=== PATIENT | female | born 1955 | race Caucasian/White ===

== ENCOUNTER → 2016-09-21 | Outpatient (REF) | payer MEDICAID, OTHER ==
[2016-09-21 15:01] LABS: ALBUMIN 4.3 GM/DL (3.2-5.2); ALBUMIN/GLOBULIN RATIO 1.43 (1.00-1.93); BILIRUBIN,TOTAL 0.6 MG/DL (0.2-1.0); CREATININE FOR GFR 1.06 MG/DL (0.55-1.02); FREE T4 1.06 NG/DL (0.76-1.46); GLOMERULAR FILTRATION RATE 56.1 (>45); POTASSIUM SERUM 4.1 MEQ/L (3.5-5.1); TOTAL PROTEIN 7.3 GM/DL (6.4-8.2)
== END ==
LOC: M SFHCADAM 08:37
PROVIDERS: ATTEND Physician Assistant
DX: E03.9 Hypothyroidism, unspecified (principal); I11.9 Hypertensive heart disease without heart failure; M50.30 Other cervical disc degeneration, unspecified cervical region

== ENCOUNTER 2017-02-07 08:09 | Outpatient (CLI) | payer OTHER ==
[~2017-02-07] VITALS: Ht 172.7 cm; Wt 111.6 kg
[~2017-02-07 08:09] MED LIST: ASPI81TA85 PO; CARV25TA PO; CHLO125TA PO; CYCL5TAB PO; D3-5CAP PO; FISH100049 PO; LATA5OPD OD; LEVO50TA5 PO; LOSA50TA20 PO; METR0.7534 EX; NITR4TASL SL
[2017-02-07] MEDS ORDERED: NS 1,000 ML IV SCH (08:45)
[2017-02-07] MEDS ORDERED: PROPOFOL 200 MG/20 ML VIAL As Ordered ONE (09:59)
[2017-02-07] MEDS ORDERED: LIDOCAINE 2% INJ 100 MG/5 ML SDV (FOR ANES.) As Ordered ONE (09:59)
--- NOTE | 2017-02-07 10:05 | ROOR ---
Patient Name: Mildred Arndt Procedure Date: 02/07/2017 9:41 AM Date of : 1955 Age: 61 Room: [facility] Gender: Female Note Status: Finalized Procedure: Colonoscopy Indications: High risk colon cancer surveillance: Personal history of colonic polyps Providers: Aguilar LEDBETTER MD Referring MD: JUAN Perez Requesting Provider: Medicines: Monitored Anesthesia Care Complications: No immediate complications. Procedure: Pre-Anesthesia Assessment: - The heart rate, respiratory rate, oxygen saturations, blood pressure, adequacy of pulmonary ventilation, and response to care were monitored throughout the procedure. The Colonoscope was introduced through the anus and advanced to the cecum, identified by appendiceal orifice and ileocecal valve. The colonoscopy was performed without difficulty. The patient tolerated the procedure well. The quality of the bowel preparation was adequate and fair and good except the cecum was unsatisfactory. Findings: The perianal and digital rectal examinations were normal. A 5 mm polyp was found in the sigmoid colon. The polyp was sessile. The polyp was removed with a cold snare. Resection and retrieval were complete. A few medium-mouthed diverticula were found in the sigmoid colon. Internal hemorrhoids were found during retroflexion. The hemorrhoids were medium-sized. The exam was otherwise without abnormality on direct and retroflexion views. Impression: - Preparation of the colon was fair. - One 5 mm polyp in the sigmoid colon, removed with a cold snare. Resected and retrieved. - Diverticulosis in the sigmoid colon. - Internal hemorrhoids. - The examination was otherwise normal on direct and retroflexion views. Recommendation: - Repeat colonoscopy in 2 years because the bowel preparation was suboptimal. Aguilar Ledbetter MD Aguilar LEDBETTER MD 02/07/2017 10:05:17 AM This report has been signed electronically. Number of Addenda: 0 Note Initiated On: 02/07/2017 9:41 AM Estimated Blood Loss: Estimated blood loss: none.
[2017-02-07 10:25] VITALS: BP 145/95
== END 2017-02-07 11:05 | disposition home or self-care (01) ==
LOC: M OPP 08:09
PROVIDERS: ATTEND Internal Medicine Gastroenterology
DX: Z12.11 Encounter for screening for malignant neoplasm of colon (principal); D12.5 Benign neoplasm of sigmoid colon; K57.30 Diverticulosis of large intestine without perforation or abscess without bleeding; K64.8 Other hemorrhoids; Z86.010 Personal history of colon polyps; I25.10 Atherosclerotic heart disease of native coronary artery without angina pectoris; I10 Essential (primary) hypertension; E78.5 Hyperlipidemia, unspecified; E03.9 Hypothyroidism, unspecified; R51 Headache; Z95.5 Presence of coronary angioplasty implant and graft; E66.9 Obesity, unspecified; Z87.891 Personal history of nicotine dependence; Z88.8 Allergy status to other drugs, medicaments and biological substances; Z91.040 Latex allergy status; Z79.82 Long term (current) use of aspirin; Z79.899 Other long term (current) drug therapy; Z80.0 Family history of malignant neoplasm of digestive organs

== ENCOUNTER → 2017-03-15 | Outpatient (CLI) | payer OTHER ==
--- NOTE | 2017-03-15 10:48 | REP ---
Right knee five views: Comparison is 05/06/2010. There is joint space narrowing and osteophytic formation of the medial compartment at the patellofemoral compartment. This is similar to the comparison study. The lateral compartment is unremarkable. There is no joint effusion. Mineralization is normal. Impression: Medial compartment and patellofemoral compartment osteoarthritis. Lateral compartment is unremarkable. No change from the prior study. Signed by Sylvester Ferrari MD 03/15/2017 10:38 A
== END ==
LOC: M ADAMS 10:02
PROVIDERS: ATTEND Physician Assistant
DX: M25.561 Pain in right knee (principal)

== ENCOUNTER → 2017-04-08 | Outpatient (CLI) | payer OTHER ==
--- NOTE | 2017-04-08 13:47 | REP ---
Lumbar spine series: Five views. History: Degenerative disc disease. Low back pain. Findings: There is a mild levoconvex lumbar rotoscoliotic curve. Diffuse degenerative disc disease is seen. This is most pronounced at the L4-L5 and L2-3 where there is reactive sclerosis and osteophyte formation. There is some degenerative narrowing of the 3-4 disc as well. Pedicles and posterior elements are intact. There is no evidence of spondylolysis or spondylolisthesis. There is osteoarthritic facet hypertrophy and sclerosis bilaterally at L4-5 and L5-S1, left more so than right. Psoas margins are symmetric. Sacrum and SI joints are intact. Impression: Levoconvex lumbar scoliotic curve. Degenerative disc disease and osteoarthritic facet changes as noted above. No acute bony abnormality. Signed by Rolf Razo MD 04/08/2017 03:14 P
== END ==
LOC: M ADAMS 10:17
PROVIDERS: ATTEND Physician Assistant
DX: M51.36 Other intervertebral disc degeneration, lumbar region (principal); M41.86 Other forms of scoliosis, lumbar region

== ENCOUNTER → 2018-02-17 | Outpatient (REF) | payer OTHER ==
[2018-02-17 16:39] LABS: BASO % 0.6 % (0.0-1.0); EOS # 0.1 10^3/uL (0.0-0.50); EOS % 1.8 % (0.0-3.0); HEMOGLOBIN 15.9 g/dl (12.0-15.5); IMMATURE GRANULOCYTE % 0.2 % (0-3.0); LYMPH # 2.1 10^3/uL (1.5-4.5); LYMPH % 42.7 % (24.0-44.0); MEAN CORPUSCULAR HEMOGLOBIN 31.6 pg (27.0-33.0); MEAN CORPUSCULAR HGB CONC 36.1 g/dl (32.0-36.5); MEAN CORPUSCULAR VOLUME 87.5 fl (80.0-96.0); MONO # 0.5 10^3/uL (0.0-0.8); MONO % 9.2 % (0.0-5.0); NEUTROPHILS # 2.2 10^3/uL (1.8-7.7); NEUTROPHILS % 45.5 % (36.0-66.0); PLATELET COUNT, AUTOMATED 227 10^3/uL (150-450); RED BLOOD COUNT 5.03 10^6/uL (4.00-5.40); RED CELL DISTRIBUTION WIDTH 12.1 % (11.5-14.5); WHITE BLOOD COUNT 4.9 10^3/uL (4.0-10.0)
[2018-02-17 17:19] LABS: ALBUMIN 4.3 GM/DL (3.2-5.2); ALBUMIN/GLOBULIN RATIO 1.16 (1.00-1.93); ALKALINE PHOSPHATASE 98 U/L (45-117); ALT/SGPT 32 U/L (12-78); ANION GAP 9 MEQ/L (8-16); AST/SGOT 24 U/L (7-37); BILIRUBIN,TOTAL 0.9 MG/DL (0.2-1.0); BLOOD UREA NITROGEN 26 MG/DL (7-18); CARBON DIOXIDE LEVEL 28 MEQ/L (21-32); CHLORIDE LEVEL 103 MEQ/L (98-107); CHOLESTEROL LEVEL 236 MG/DL (<200); CHOLESTEROL RISK RATIO 5.488 (<5); CPK CREATINE PHOSPHOKINASE 128 U/L (26-192); CREATININE FOR GFR 1.34 MG/DL (0.55-1.30); GLOMERULAR FILTRATION RATE 42.5 (>45); GLUCOSE, FASTING 120 MG/DL (70-100); HDL CHOLESTEROL 43 MG/DL (>40); NON-HDL-C 193 MG/DL; POTASSIUM SERUM 3.8 MEQ/L (3.5-5.1); SODIUM LEVEL 140 MEQ/L (136-145); TRIGLYCERIDES LEVEL 230 MG/DL (<150)
== END ==
LOC: M LABDRWAD 16:06
DX: R07.9 Chest pain, unspecified (principal); R00.2 Palpitations; E66.1 Drug-induced obesity; I10 Essential (primary) hypertension

== ENCOUNTER 2018-07-03 16:02 | Observation (INO) | payer OTHER ==
[~2018-07-03] VITALS: Ht 167.6 cm; Wt 100.0 kg
[~2018-07-03 16:02] MED LIST changes: -LOSA50TA20 PO; +LOSA50TA88 PO; -METR0.7534 EX; +METR0.7534 EXT
[2018-07-03] MEDS ORDERED: NS 2,000 ML IV ONE (16:45)
[2018-07-03 16:57] LABS: BASO % 0.3 % (0.0-1.0); EOS % 0.2 % (0.0-3.0); HEMATOCRIT 37.9 % (36.0-47.0); HEMOGLOBIN 13.7 g/dl (12.0-15.5); LYMPH # 1.6 10^3/uL (1.5-4.5); LYMPH % 17.5 % (24.0-44.0); MEAN CORPUSCULAR HGB CONC 36.1 g/dl (32.0-36.5); MEAN CORPUSCULAR VOLUME 88.6 fl (80.0-96.0); MONO % 10.9 % (0.0-5.0); NEUTROPHILS # 6.3 10^3/uL (1.8-7.7); NEUTROPHILS % 70.8 % (36.0-66.0); PLATELET COUNT, AUTOMATED 149 10^3/uL (150-450); RED BLOOD COUNT 4.28 10^6/uL (4.00-5.40); WHITE BLOOD COUNT 8.9 10^3/uL (4.0-10.0)
--- NOTE | 2018-07-03 17:03 | REP ---
Chest one-view HISTORY: Syncope Comparison: 03/24/2016 The lungs are clear. The heart is normal in size. The pulmonary vasculature is normal in appearance. Impression: No acute disease. Electronically Signed by Eleazar Osorio MD 07/03/2018 04:55 P
[2018-07-03 17:20] LABS: ALBUMIN 3.6 GM/DL (3.2-5.2); ALT/SGPT 19 U/L (12-78); BILIRUBIN,DIRECT 0.3 MG/DL (0.0-0.2); BILIRUBIN,TOTAL 1.1 MG/DL (0.2-1.0); BLOOD UREA NITROGEN 23 MG/DL (7-18); CALCIUM LEVEL 9.1 MG/DL (8.8-10.2); CARBON DIOXIDE LEVEL 26 MEQ/L (21-32); CHLORIDE LEVEL 99 MEQ/L (98-107); CK-MB VALUE MASS < 1.0 NG/ML (<3.6); CPK CREATINE PHOSPHOKINASE 87 U/L (26-192); ETHYL ALCOHOL (ETHANOL) < 0.003 % (0.000-0.010); GLOMERULAR FILTRATION RATE 40.4 (>45); GLUCOSE, FASTING 108 MG/DL (70-100); MB/CK RELATIVE INDEX 1.15 (< OR =4); POTASSIUM SERUM 3.1 MEQ/L (3.5-5.1); SODIUM LEVEL 137 MEQ/L (136-145); THYROID STIMULATING HORMONE 0.869 uIU/ML (0.358-3.740); TROPONIN I < 0.02 NG/ML (< 0.10)
[2018-07-03 17:40] LABS: INFLUENZA A AMPLIFICATION NEGATIVE (NEGATIVE); INFLUENZA B AMPLIFICATION NEGATIVE (NEGATIVE)
--- NOTE | 2018-07-03 18:19 | REP ---
CT brain without contrast: History: Syncope. No comparison CT study. Findings: Preliminary digital furnace setter radiograph is unremarkable. Bone window settings demonstrate an intact bony calvarium. Visualized paranasal sinuses are clear. No intraorbital abnormality is seen. On soft tissue window settings, there is minimal diffuse cerebral atrophy. There is no evidence of intracranial hemorrhage. No infarct, mass, extra-axial fluid collection, or midline shift is seen. Impression: Minimal diffuse cerebral atrophy. Otherwise negative CT study of the brain. Electronically Signed by Rolf Razo MD 07/03/2018 07:47 P
[2018-07-03 18:50] LABS: AMPHETAMINES LEVEL URINE NEGATIVE (NEGATIVE); BARBITURATES URINE NEGATIVE (NEGATIVE); BENZODIAZEPINES URINE NEGATIVE (NEGATIVE); CANNABINOIDS URINE NEGATIVE (NEGATIVE); COCAINE METABOLITE URINE NEGATIVE (NEGATIVE); METHADONE URINE NEGATIVE (NEGATIVE); OPIATES URINE NEGATIVE (NEGATIVE); PHENCYCLIDINE URINE NEGATIVE (NEGATIVE)
[2018-07-03] MEDS ORDERED: POTASSIUM CHLORIDE 10 MEQ SR TABLET PO ONE (19:45)
[2018-07-03] MEDS ORDERED: cefTRIAXone SOD 1 GM in D5W MINI-BAG PLUS 50 ML IV ONE (19:45)
[2018-07-03] MEDS ORDERED: NS 500 ML IV ONE (19:45)
[2018-07-03] MEDS ORDERED: CEFD300CAP PO (19:49)
[2018-07-03] MEDS ORDERED: XALA0.007 OU (22:33)
[2018-07-03] MEDS ORDERED: CLOTCRE3 TOP (22:33)
[2018-07-03] MEDS ORDERED: VITA50005 PO (22:33)
[2018-07-03] MEDS ORDERED: ASPI81TAEC PO (22:33)
[2018-07-03] MEDS ORDERED: TYLE500T78 PO (22:33)
[2018-07-03] MEDS ORDERED: CHLO25TA PO (22:33)
[2018-07-03] MEDS ORDERED: CARV25TA PO (22:33)
[2018-07-03] MEDS ORDERED: SYNT50TA PO (22:33)
[2018-07-03] MEDS ORDERED: ZETI10TA30 PO (22:33)
[2018-07-03] MEDS ORDERED: DULO1CAP PO (22:33)
[2018-07-03] MEDS ORDERED: CYCL5TAB PO (22:33)
[2018-07-03] MEDS ORDERED: FISH1000 PO (22:33)
--- NOTE | 2018-07-04 00:54 | HPEPDOC ---
General Date of Admission June 27, 2018 Primary Care Physician: CÉSAR BARNES PA-C Attending Physician: Cy Last M.D. Chief Complaint The patient is a 62-year-old female admitted with a reason for visit of N/V. History of Present Illness 61-year-old female with multiple comorbidities who was brought in by EMS after she fainted at home which was witnessed by her grandson. For the last 3 days she's been experiencing lightheadedness and dizziness which she attributes for her recent travel to [place]. She went home for the holidays and had interaction with little kids the past 1 month. She states that she had some sick contact at that time as well. She's noticed that she's been home though she's had a decreased appetite and just like generalized malaise. Was to having possible subjective fevers but did not take her temperature. She states that she is compliant with all her medications as well. She admits to checking her blood pressure as needed in the last time she checked in April and was 130s over 80s. Denies having any vomiting constipation diarrhea dysuria or increased urinary frequency. . She admits to having some nausea this morning when she woke up. This morning when she was in her kitchen experienced dizziness and syncopized. Her grandson witnessed the syncopal episode and caught her before she fell to the ground. He denies her having any head injury. When evaluated by EMS her blood sugar was 86 she was satting 95% on room air and she was given 4 mg of Zofran prior to ring brought to the [facility] ER for further evaluation. In the ER, her blood pressure was 96/58 with a pulse of 67 regular. She was given 2 L of normal saline bolus. Head CT was negative for any acute processes. Electrolytes showed hypokalemia and hospitalist team was then called for admission for syncopal episode. Home Medications Scheduled Aspirin (Aspirin EC) 81 Mg Tabec, 81 MG PO DAILY, (Reported) Carvedilol (Carvedilol) 25 Mg Tab, 25 MG PO BID, (Reported) Cefdinir (Cefdinir) 300 Mg Cap, 1 CAP PO BID Chlorthalidone (Chlorthalidone) 25 Mg Tab, 25 MG PO DAILY, (Reported) Duloxetine Hcl (Duloxetine HCl) 20 Mg Cap, 20 MG PO BID, (Reported) Ergocalciferol (Vitamin D) 50,000 Unit Cap, 50,000 UNIT PO 1XWK, (Reported) FRIDAYS Ezetimibe (Zetia) 10 Mg Tab, 10 MG PO DAILY, (Reported) Fish Oil (Fish Oil) 1,000 Mg Cap, 1,000 MG PO BID, (Reported) Latanoprost (Xalatan) 0.005 % Lea, 1 DROP OU QHS, (Reported) Levothyroxine Sodium (Synthroid) 50 Mcg Tab, 50 MCG PO DAILY, (Reported) Losartan Potassium (Losartan Potassium) 50 Mg Tab, 50 MG PO DAILY, (Reported) Metronidazole (Metronidazole) 1 % Gel, 1 DOSE EXT DAILY, (Reported) USES ON FACE FOR ROSACEA AFTER SHOWER Scheduled PRN Acetaminophen (Tylenol Extra Strength) 500 Mg Tab, 1,000 MG PO Q6H PRN for PAIN, (Reported) Clotrimazole (Clotrimazole Anti-Fungal) 1 % Cre, 1 DOSE TOP BID PRN for RASH, (Reported) USES UNDER STOMACH FOLD NEEDED FOR RASH Cyclobenzaprine HCl (Cyclobenzaprine HCl) 5 Mg Tab, 5 MG PO TID PRN for HEADACHE, (Reported) Allergies Coded Allergies: Latex (Unverified Allergy, Unknown, rash, 02/02/17) Atorvastatin (Unverified Adverse Reaction, Mild, muscle cramps, 02/02/17) Dobutamine (Verified Adverse Reaction, Mild, drops heartrate into the 40's, 02/02/17) Lisinopril (Verified Adverse Reaction, Mild, cough, 02/02/17) Past Medical History Medical History 1. Coronary artery disease status post LAD stent on 2. Hypertensive heart disease 3. Obesity 4. Depression 5. Osteophyte arthritis 6. History of Gallstones 7. History of migraines 8. History of glaucoma 9. 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 Hysterectomy 1999 2. LAD stent placement in 2009 3. Tubal ligation 4. Tonsillectomy 5. Fracture repair 6. Colposcopy 2013 7. Colonoscopy with polypectomy Family History Father at 44 years old little known history heart disease and hypertension Mother at 82 years old history of colon cancer Social History * Smoker: former Smoker, quit greater than 1 year (quit greater than 10 years ago) Alcohol: occationally Drugs: denies She is a low-fat low-cholesterol diet. She is currently unemployed Denies regular exercise She is & mother of 3 Review of Systems Constitutional: Reports: Fever (objective fevers), Malaise, Weakness; Denies: Chills, Night Sweats Eyes: Denies: Pain, Vision change ENT: Reports: Head Aches (has a history of migraines took her when necessary cyclobenzaprine on Tuesday); Denies: Ear Pain, Dysphagia, Sinus Congestion, Post Nasal Drip, Sore Throat Skin: Denies: Rash, Lesions, Jaundice, Breakdown Pulmonary: Denies: Dyspnea, Cough Cardiovascular: Reports: Lt Headedness (plus dizziness); Denies: Chest Pain, Palpitations, Orthopnea, Paroxysmal Noc. Dyspnea Gastrointestinal: Reports: Nausea; Denies: Vomiting, Abdominal Pain, Diarrhea, Melena, Hematochezia Genitourinary: Denies: Dysuria, Frequency, Incontinence, Hematuria Hematologic: Denies: Bruising, Bleeding Excessively Musculoskeletal: Denies: Neck Pain, Back Pain, Joint Pain, Muscle Pain, Spasms Neurological: Denies: Weakness, Numbness, Change in speech, Confusion, Seizures Psych: Reports: Mood Normal, Depression (history of depression on duloxetine); Denies: Memory Issues Physical Examination General Exam: Positive: Alert, No Acute Distress Eye Exam: Positive: PERRLA, Conjunctiva & lids normal, EOMI; Negative: Sclera icteric ENT Exam: Positive: Atraumatic, Mucous membr. moist/pink, Pharynx Normal, Tongue Midline Neck Exam: Positive: Supple; Negative: JVD, thyromegaly Chest Exam: Positive: Clear to auscultation, Normal air movement Heart Exam: Positive: Rate Normal, Regular Rhythm, Normal S1, Normal S2; Negative: Murmurs, Rubs Telemetry: Positive: No significant arrhythmia Abdomen Exam: Positive: BS Hypoactive, Soft; Negative: Tenderness Extremity Exam: Positive: Normal pulses; Negative: Clubbing, Cyanosis, Edema Skin Exam: Positive: Nl turgor and temperature (no tenting can be appreciated); Negative: Breakdown, Lesion Neuro Exam: Positive: Normal Gait, Normal Speech Psych Exam: Positive: Mental status NL, Mood NL, Oriented x 3 Other physical findings Stool occult: negative Vital Signs Vital Signs Date Time Temp Pulse Resp B/P (MAP) Pulse Ox O2 Delivery O2 Flow Rate FiO2 07/03/18 23:15 60 94/58 (70) 94 07/03/18 18:45 18 Room Air 07/03/18 16:58 2.0 07/03/18 16:14 98.8 Laboratory Data Labs 24H Laboratory Tests 2 07/03/18 16:32: Immature Granulocyte % (Auto) 0.3, White Blood Count 8.9, Red Blood Count 4.28, Hemoglobin 13.7, Hematocrit 37.9, Mean Corpuscular Volume 88.6, Mean Corpuscular Hemoglobin 32.0, Mean Corpuscular Hemoglobin Concent 36.1, Red Cell Distribution Width 11.7, Platelet Count 149L, Neutrophils (%) (Auto) 70.8H, Lymphocytes (%) (Auto) 17.5L, Monocytes (%) (Auto) 10.9H, Eosinophils (%) (Auto) 0.2, Basophils (%) (Auto) 0.3, Neutrophils # (Auto) 6.3, Lymphocytes # (Auto) 1.6, Monocytes # (Auto) 1.0H, Eosinophils # (Auto) 0.0, Basophils # (Auto) 0.0, Nucleated Red Blood Cells % (auto) 0.0, Anion Gap 12, Glomerular Filtration Rate 40.4L, Lactic Acid Level 1.0, Calcium Level 9.1, Aspartate Amino Transf (AST/SGOT) 16, Alanine Aminotransferase (ALT/SGPT) 19, Alkaline Phosphatase 100, Total Bilirubin 1.1H, Direct Bilirubin 0.3H, Total Creatine Kinase 87, Creatine Kinase MB < 1.0, Creatine Kinase MB Relative Index 1.15, Troponin I < 0.02, Total Protein 7.0, Albumin 3.6, Albumin/Globulin Ratio 1.06, Thyroid Stimulating Hormone (TSH) 0.869, Ethyl Alcohol Level < 0.003 07/03/18 16:52: Bedside Glucose (Misc Panel) 121H 07/03/18 16:55: Influenza Type A (RT-PCR) NEGATIVE, Influenza Type B (RT-PCR) NEGATIVE 07/03/18 18:16: Urine Color SERENA, Urine Appearance CLOUDYH, Urine pH 6.0, Urine Specific [place] 1.013, Urine Protein 1+H, Urine Glucose (UA) NEGATIVE, Urine Ketones NEGATIVE, Urine Blood 2+H, Urine Nitrite NEGATIVE, Urine Bilirubin NEGATIVE, Urine Urobilinogen 0.2, Urine Leukocyte Esterase 2+H, Urine WBC (Auto) TNTCH, Urine RBC (Auto) 87H, Urine Hyaline Casts (Auto) 15, Urine Bacteria (Auto) 2+H, Urine Squamous Epithelial Cells 5, Urine Amorphous Sediment MODERATEH, Urine Mucus (Auto) SMALL, Urine Sperm (Auto) , Urine Amphetamines Screen NEGATIVE, Urine Benzodiazepines Screen NEGATIVE, Urine Opiates Screen NEGATIVE, Urine Methadone Screen NEGATIVE, Urine Barbiturates Screen NEGATIVE, Urine Phencyclidine Screen NEGATIVE, Urine Cocaine Metabolite Screen NEGATIVE, Urine Cannabinoids Screen NEGATIVE CBC/BMP Laboratory Tests 07/03/18 16:32 Red Blood Count 4.28, Mean Corpuscular Volume 88.6, Mean Corpuscular Hemoglobin 32.0, Mean Corpuscular Hemoglobin Concent 36.1, Red Cell Distribution Width 11.7, Neutrophils (%) (Auto) 70.8 H, Lymphocytes (%) (Auto) 17.5 L, Monocytes (%) (Auto) 10.9 H, Eosinophils (%) (Auto) 0.2, Basophils (%) (Auto) 0.3, Neutrophils # (Auto) 6.3, Lymphocytes # (Auto) 1.6, Monocytes # (Auto) 1.0 H, Eosinophils # (Auto) 0.0, Basophils # (Auto) 0.0 Microbiology Microbiology 07/03/18 Blood Culture, Received Pending 07/03/18 Blood Culture, Received Pending 07/03/18 Urine Culture, Received Pending Assessment/Plan 1. Syncope likely secondary to decreased by mouth intake. In the ER she was given 2 L of IV bolus she states that her headache and lightheadedness have improved. Blood pressure still continues to the systolic 90s the highs of 110s. Continue with IV fluids running at 100 miles per hour and encourage good by mouth intake. We'll hold her carvedilol chlorthalidone, losartan and cycloben zaprine until resolution of syncope. Possible cause can be a viral as well as hypertensive medication, will obtain respiratory viral panel. We will also place her on telemetry to assess for any abnormal arrhythmia as well. Stool occult done at bedside was negative for blood. H&H is stable.Unlikely is secondary to anemia 2. Abnormal UA. Positive for WBC RBC 2+ leukocyte esterase. No leukocytosis and lactic acid is within normal limits. Given 1 dose of ceftriaxone in the ER reflex urine culture pending. History negative for UTI like symptoms -further antibiotics not needed. 3. History of hypertension. We'll hold all hypertensive medications for now. 1 and blood pressure is normalized can consider reducing chlorthalidone or losartan dose if needed 4. Hypokalemia. She was given 40 mEq potassium in the ER. Likely secondary to her diuretics (chlorthalidone) that she takes for blood pressure control, will supplement as needed. 5. Chronic kidney disease stage III baseline GFR 40s. She still has good urine output currently stable 6. History of LAD stent - hold carvedilol can resume once syncope is resolved 7. History of migraines we'll hold cyclobenzaprine prn for now. Refer to problem 1 8.History of depression- c/w duloxetine 20 mg by mouth daily 9. Hypothyroidism. c/w Synthroid 50 g by mouth daily 10. History of hyperlipidemia Zetia 10 mg by mouth daily 11. Diet low cholesterol diet 12. DVT prophylaxis heparin 5000 units daily 8 hours Disposition the patient will be admitted to family medicine service under Dr. Last 07/04/2018 at 7 AM. Plan / VTE VTE Prophylaxis Ordered?: Yes (heparin) GME ATTESTATION GME ATTESTATION My faculty preceptor for this patient encounter was physically present during the encounter and was fully available. All aspects of the patient interview, examination, medical decision making process, and medical care plan development were reviewed and approved by the faculty preceptor. The faculty preceptor is aware and concurs with the plan as stated in the body of this note and will attest to such by his/her cosignature. WANDER SOL DO Jul 04, 2018 00:54
[2018-07-04] MEDS ORDERED: LOSA50TA88 PO (02:12)
[2018-07-04] MEDS ORDERED: CLOTRIMAZOLE 1% TOPICAL CREAM 30GM TOP PRN (02:15)
[2018-07-04] MEDS ORDERED: ONDANSETRON 4MG/2ML VIAL (J2405) IV PRN (02:15)
[2018-07-04] MEDS ORDERED: ACETAMINOPHEN TAB 650MG DOSE (2X325MG) PO PRN (02:15)
[2018-07-04] MEDS: NS 1,000 ML IV SCH ×2 (02:58→12:06)
[2018-07-04] MEDS ORDERED: METAL LOCK LOOP XX ONE (04:41)
[2018-07-04] MEDS: LEVOTHYROXINE 50MCG TABLET (0.05MG) PO SCH (06:41)
[2018-07-04] MEDS: HEPARIN SOD (PORCINE) 5000 UNITS/ML VIAL SC SCH ×3 (06:41→22:06)
--- NOTE | 2018-07-04 09:58 | IPNPDOC ---
Subjective Date Seen The patient was seen on 07/04/18. Subjective Chief Complaint/HPI Pt this morning is feeling well, much better than she was. She has been up and out of bed without difficulty. She ate all of her breakfast. General: Reports: Fatigue Constitutional: Denies: Chills, Fever ENT: Denies: Head Aches Pulmonary: Denies: Dyspnea, Cough Cardiovascular: Denies: Chest Pain, Palpitations Gastrointestinal: Denies: Nausea, Vomiting, Abdominal Pain, Diarrhea Neurological: Denies: Weakness Psych: Reports: Mood Normal; Denies: Depression Objective Physical Examination General Exam: Positive: Alert, No Acute Distress ENT Exam: Positive: Mucous membr. moist/pink Neck Exam: Positive: Supple; Negative: JVD, thyromegaly Chest Exam: Positive: Clear to auscultation, Normal air movement Heart Exam: Positive: Rate Normal, Regular Rhythm, Normal S1, Normal S2; Negative: Murmurs, Rubs Telemetry: Positive: No significant arrhythmia Abdomen Exam: Positive: Normal bowel sounds, Soft; Negative: Tenderness Extremity Exam: Positive: Normal pulses; Negative: Clubbing, Cyanosis, Edema Skin Exam: Positive: Nl turgor and temperature (no tenting can be appreciated); Negative: Breakdown, Lesion Neuro Exam: Positive: Normal Speech Psych Exam: Positive: Mental status NL, Mood NL, Oriented x 3 Assessment /Plan Problems (1) Syncope Status: Acute Response to Treatment: Stable, Improving Problem Specific Plan: Monitor Clinically, Repeat Labs Problem Text: favor 2 OH 2 medication/dehydration No prior h/o 07/04 unremarkable tele since admit +orthostatics on admission (07/03 SBP sup 96/sit 80) 07/03 CT brain NAD 07/03 CXR NAD 07/03 BCX2 NG 07/03 UCX P (2) Orthostatic hypotension Status: Acute Response to Treatment: Improving Problem Specific Plan: Monitor Clinically, Repeat Labs Problem Text: as per syncope (3) Hypokalemia Status: Acute Response to Treatment: Stable Problem Specific Plan: Monitor Clinically, Repeat Labs Problem Text: repeat BMP ordered for AM. (4) CKD (chronic kidney disease), stage III Status: Chronic Response to Treatment: Stable Problem Specific Plan: Monitor Clinically, Repeat Labs Problem Text: 07/04 1.4-favor 2 mild dehydration baseline ~1.1 (5) Hypertension Status: Chronic Problem Text: stable off HD CTD 25, carve 25 BID, los 50 QD (6) Physical deconditioning Status: Chronic Problem Text: 07/04 PT P lives in [place] Plan/VTE VTE Prophylaxis Ordered?: Yes (heparin) VS, I&O, 24H, Fishbone Vital Signs/I&O Vital Signs Date Time Temp Pulse Resp B/P (MAP) Pulse Ox O2 Delivery O2 Flow Rate FiO2 07/04/18 07:30 66 129/72 (91) 93 07/04/18 06:30 16 07/03/18 18:45 Room Air 07/03/18 16:58 2.0 07/03/18 16:14 98.8 I&O- Last 24 Hours up to 6 AM 07/04/18 06:00 Intake Total 1000 ml Balance 1000 ml Laboratory Data 24H LABS Laboratory Tests 2 07/03/18 16:32: Immature Granulocyte % (Auto) 0.3, White Blood Count 8.9, Red Blood Count 4.28, Hemoglobin 13.7, Hematocrit 37.9, Mean Corpuscular Volume 88.6, Mean Corpuscular Hemoglobin 32.0, Mean Corpuscular Hemoglobin Concent 36.1, Red Cell Distribution Width 11.7, Platelet Count 149L, Neutrophils (%) (Auto) 70.8H, Lymphocytes (%) (Auto) 17.5L, Monocytes (%) (Auto) 10.9H, Eosinophils (%) (Auto) 0.2, Basophils (%) (Auto) 0.3, Neutrophils # (Auto) 6.3, Lymphocytes # (Auto) 1.6, Monocytes # (Auto) 1.0H, Eosinophils # (Auto) 0.0, Basophils # (Auto) 0.0, Nucleated Red Blood Cells % (auto) 0.0, Anion Gap 12, Glomerular Filtration Rate 40.4L, Lactic Acid Level 1.0, Calcium Level 9.1, Aspartate Amino Transf (AST/SGOT) 16, Alanine Aminotransferase (ALT/SGPT) 19, Alkaline Phosphatase 100, Total Bilirubin 1.1H, Direct Bilirubin 0.3H, Total Creatine Kinase 87, Creatine Kinase MB < 1.0, Creatine Kinase MB Relative Index 1.15, Troponin I < 0.02, Total Protein 7.0, Albumin 3.6, Albumin/Globulin Ratio 1.06, Thyroid Stimulating Hormone (TSH) 0.869, Ethyl Alcohol Level < 0.003 07/03/18 16:52: Bedside Glucose (Misc Panel) 121H 07/03/18 16:55: Influenza Type A (RT-PCR) NEGATIVE, Influenza Type B (RT-PCR) NEGATIVE 07/03/18 18:16: Urine Color SERENA, Urine Appearance CLOUDYH, Urine pH 6.0, Urine Specific [place] 1.013, Urine Protein 1+H, Urine Glucose (UA) NEGATIVE, Urine Ketones NEGATIVE, Urine Blood 2+H, Urine Nitrite NEGATIVE, Urine Bilirubin NEGATIVE, Urine Urobilinogen 0.2, Urine Leukocyte Esterase 2+H, Urine WBC (Auto) TNTCH, Urine RBC (Auto) 87H, Urine Hyaline Casts (Auto) 15, Urine Bacteria (Auto) 2+H, Urine Squamous Epithelial Cells 5, Urine Amorphous Sediment MODERATEH, Urine Mucus (Auto) SMALL, Urine Sperm (Auto) , Urine Amphetamines Screen NEGATIVE, Urine Benzodiazepines Screen NEGATIVE, Urine Opiates Screen NEGATIVE, Urine Methadone Screen NEGATIVE, Urine Barbiturates Screen NEGATIVE, Urine Ph encyclidine Screen NEGATIVE, Urine Cocaine Metabolite Screen NEGATIVE, Urine Cannabinoids Screen NEGATIVE CBC/BMP Laboratory Tests 07/03/18 16:32 Red Blood Count 4.28, Mean Corpuscular Volume 88.6, Mean Corpuscular Hemoglobin 32.0, Mean Corpuscular Hemoglobin Concent 36.1, Red Cell Distribution Width 11.7, Neutrophils (%) (Auto) 70.8 H, Lymphocytes (%) (Auto) 17.5 L, Monocytes (%) (Auto) 10.9 H, Eosinophils (%) (Auto) 0.2, Basophils (%) (Auto) 0.3, Neutrophils # (Auto) 6.3, Lymphocytes # (Auto) 1.6, Monocytes # (Auto) 1.0 H, Eosinophils # (Auto) 0.0, Basophils # (Auto) 0.0 Microbiology Microbiology 07/03/18 Blood Culture, Received Pending 07/03/18 Blood Culture, Received Pending 07/03/18 Urine Culture, Received Pending JAMAR DUMONT PA-C Jul 04, 2018 09:58 Cy Last M.D. Jul 04, 2018 17:13
[2018-07-04] MEDS: EZETIMIBE 10 MG TAB (ZETIA) PO SCH (10:08)
[2018-07-04] MEDS: DULoxetine 20 MG CAP (CYMBALTA) PO SCH ×2 (10:08→22:06)
[2018-07-04 13:00] VITALS: BP 113/67
--- NOTE | 2018-07-04 18:24 | ECGEPIP ---
Stationary ECG Study [facility] - ED Test Date: 2018-07-03 Pat Name: SUSAN HARMON Department: Room: - Gender: F Radio Dispatcher: ARJUN : 1955 Requested By: KIM Baron Order Number: [id number] Reading MD: Jonel Figueroa Measurements Intervals [place] Rate: 65 P: 43 NM: 159 QRS: 27 QRSD: 104 T: 40 QT: 401 QTc: 418 Interpretive Statements SINUS RHYTHM MODERATE INTRAVENTRICULAR CONDUCTION DELAY NO PRIORS FOR COMPARISON Electronically Signed On 07-04-2018 18:23:37 EST by Jonel Figueroa
[2018-07-04] MEDS ORDERED: LATANOPROST 0.005% OPHTH SOLN 2.5 ML OU SCH (21:00)
[2018-07-04 22:00] VITALS: BP 128/82
[2018-07-05] MEDS: LEVOTHYROXINE 50MCG TABLET (0.05MG) PO SCH (05:32)
[2018-07-05] MEDS: HEPARIN SOD (PORCINE) 5000 UNITS/ML VIAL SC SCH (05:32)
[2018-07-05 06:00] VITALS: BP_SYST 125; BP_SYST 133; BP_DIAS 74; BP_DIAS 75; BP_DIAS 80
[2018-07-05 06:29] LABS: HEMATOCRIT 34.2 % (36.0-47.0); HEMOGLOBIN 12.1 g/dl (12.0-15.5); MEAN CORPUSCULAR HGB CONC 35.4 g/dl (32.0-36.5); MEAN CORPUSCULAR VOLUME 90.5 fl (80.0-96.0); PLATELET COUNT, AUTOMATED 125 10^3/uL (150-450); RED BLOOD COUNT 3.78 10^6/uL (4.00-5.40); WHITE BLOOD COUNT 4.4 10^3/uL (4.0-10.0)
[2018-07-05 06:49] LABS: CALCIUM LEVEL 9.6 MG/DL (8.8-10.2); GLOMERULAR FILTRATION RATE 59.6 (>45); MAGNESIUM LEVEL 1.9 MG/DL (1.8-2.4); POTASSIUM SERUM 4.1 MEQ/L (3.5-5.1)
[2018-07-05] MEDS: EZETIMIBE 10 MG TAB (ZETIA) PO SCH (08:55)
[2018-07-05] MEDS: DULoxetine 20 MG CAP (CYMBALTA) PO SCH (08:55)
[2018-07-05] MEDS ORDERED: CEPHALEXIN 500 MG CAP PO SCH (09:00)
[2018-07-05] MEDS ORDERED: CARVedilol 12.5 MG TAB PO SCH (09:00)
[2018-07-05] MEDS ORDERED: CEPH500C PO (10:25)
[2018-07-05] MEDS ORDERED: CARV12.5 PO (10:25)
--- NOTE | 2018-07-05 10:44 | DS.PDOC ---
Discharge Summary General Date of Admission Jul 04, 2018 at 01:07 Date of Discharge Jul 05, 2018 Primary Care Physician: CÉSAR AGUIRRE PA-C Attending Physician: Ridge Aguirre MD Discharge Summary PROCEDURES PERFORMED DURING STAY: None ADMITTING DIAGNOSES: 1. Syncope 2. Dehydration 3. Hypotension 4. MARGARETH on CKD secondary to dehydration 5. Hypokalemia 4. UTI COMPLICATIONS/CHIEF COMPLAINT: Orthostatic Hypotension,Syncope. HISTORY OF PRESENT ILLNESS: 61-year-old female patient of Kolton Aguirre PA-C was brought to [facility] ER by EMS after she fainted at home which was witnessed by her grandson. For the last 3 days she had been experiencing lightheadedness and dizziness which she attributed to her recent travel to [place]. She went home for the holidays and had interaction with little kids for the past month. She had some sick contacts around that time as well. She's had a decreased appetite with poor fluid intake and generalized malaise. She also reported subjective fevers but did not take her temperature. Denied having any vomiting constipation diarrhea dysuria or increased urinary frequency. She admited to having some nausea on morning of admission. The morning of admission, when she was in her kitchen she experienced dizziness and syncope. Her grandson witnessed the syncopal episode and caught her before she fell to the ground. He denied any head injury. When evaluated by EMS her blood sugar was 86 she was satting 95% on room air and she was given 4 mg of Zofran prior to ring brought to the [facility] ER for further evaluation. In the ER, her blood pressure was 96/58 with a pulse of 67 regular. She was given 2 L of normal saline bolus. Head CT was negative for any acute processes. Electrolytes showed hypokalemia and hospitalist team was then called for admission for syncopal episode. HOSPITAL COURSE: 1. Syncope: likely secondary to dehydration. She was given 2 L of IV bolus in ER with IV fluids. She had good oral intake and she reported symptoms improvement within a relatively short poroid of time. Antihypertensives wer held: carvedilol, chlorthalidone, and losartan. Cyclobenzaprine was also held. On day of discharge patient was feeling back to her baseline with no further episodes of syncope. B/P was stable, improved from initial presentation. Her Cardvidolol was resumed at half dose 12.5 mg po bid. All other antihypertensives were held until her f/u appt with PCP. BC negative after 24 hours, respiratory panel negative 2. Dehydration: As above 3. Hypotension: As above 4. MARGARETH on CKD secondary to dehydration: Renal function improved to baseline with BUN/Cre 18/1.00, GFR 59 on day of discharge. 5. Hypokalemia: Patient was given 40 mEq potassium in the ER. K+ 4.1 on day of discharge. Chlorthalidone was held as stated above. 4. UTI: Urine culture with E-coli >100,000 colony count. She was started on Keflex 500mg i po bid for 7 days. She will f/u with PCP DISCHARGE MEDICATIONS: Please see below. ALLERGIES: Please see below. PHYSICAL EXAMINATION ON DISCHARGE: VITAL SIGNS: Please see below. GENERAL: AOx3, NAD HEENT: unremarkable NECK: supple, no lymphadenopathy CARDIOVASCULAR EXAMINATION:RRR RESPIRATORY EXAMINATION: CTA ABDOMINAL EXAMINATION: soft, non-tender, non-distended, no CVA tenderness EXTREMITIES:no edema SKIN:clear, no rash LABORATORY DATA: Please see below. IMAGIN07/03/[address] without contrast: Minimal diffuse cerebral atrophy.Otherwise negative CT study of the brain. 07/03/18 Chest x-ray: No acute disease. PROGNOSIS: Good ACTIVITY: As tolerated DIET: 2 gm low Na+ DISCHARGE PLAN: home DISCHARGE INSTRUCTIONS: 1. f/U with PCP in 5 days 2. Hold antihypertensives other then the reduces dose of Carvediolol until f/u with PCP ITEMS TO FOLLOWUP ON ON OUTPATIENT: 1. Antihypertensives DISCHARGE CONDITION: [Stable]. TIME SPENT ON DISCHARGE: Greater than minutes. Vital Signs/I&Os Vital Signs Date Time Temp Pulse Resp B/P (MAP) Pulse Ox O2 Delivery O2 Flow Rate FiO2 07/05/18 06:00 97.4 73 20 133/75 (94) 95 07/04/18 13:00 Room Air 07/03/18 16:58 2.0 I&O- Last 24 Hours up to 6 AM 07/05/18 06:00 Intake Total 2160 ml Output Total 2200 ml Balance -40 ml Laboratory Data Labs 24H Laboratory Tests 2 07/05/18 05:47: Nucleated Red Blood Cells % (auto) 0.0, Anion Gap 6L, Glomerular Filtration Rate 59.6, Blood Urea Nitrogen 18, Creatinine 1.00, Sodium Level 138, Potassium Level 4.1#, Chloride Level 102, Carbon Dioxide Level 30, Calcium Level 9.6, Magnesium Level 1.9 CBC/BMP Laboratory Tests 07/05/18 05:47 Red Blood Count 3.78 L, Mean Corpuscular Volume 90.5, Mean Corpuscular Hemoglobin 32.0, Mean Corpuscular Hemoglobin Concent 35.4, Red Cell Distribution Width 11.7, Calcium Level 9.6 Microbiology Microbiology 07/03/18 Blood Culture - Preliminary, Resulted No growth after 24 hours . All specim... 07/03/18 Blood Culture - Preliminary, Resulted No growth after 24 hours . All specim... 07/03/18 Respiratory Virus Panel (PCR) (CATHY) - Final, Complete 07/03/18 Urine Culture - Final, Complete Escherichia Coli Discharge Medications Scheduled Aspirin (Aspirin EC) 81 Mg Tabec, 81 MG PO DAILY, (Reported) Carvedilol (Carvedilol) 25 Mg Tab, 25 MG PO BID, (Reported) Carvedilol (Carvedilol) 12.5 Mg Tab, 12.5 MG PO BID Cefdinir (Cefdinir) 300 Mg Cap, 1 CAP PO BID Cephalexin Monohydrate (Cephalexin) 500 Mg Cap, 500 MG PO BID Chlorthalidone (Chlorthalidone) 25 Mg Tab, 25 MG PO DAILY, (Reported) Duloxetine Hcl (Duloxetine HCl) 20 Mg Cap, 20 MG PO BID, (Reported) Ergocalciferol (Vitamin D) 50,000 Unit Cap, 50,000 UNIT PO 1XWK, (Reported) FRIDAYS Ezetimibe (Zetia) 10 Mg Tab, 10 MG PO DAILY, (Reported) Fish Oil (Fish Oil) 1,000 Mg Cap, 1,000 MG PO BID, (Reported) Latanoprost (Xalatan) 0.005 % Lea, 1 DROP OU QHS, (Reported) Levothyroxine Sodium (Synthroid) 50 Mcg Tab, 50 MCG PO DAILY, (Reported) Losartan Potassium (Losartan Potassium) 50 Mg Tab, 50 MG PO DAILY, (Reported) Metronidazole (Metronidazole) 1 % Gel, 1 DOSE EXT DAILY, (Reported) USES ON FACE FOR ROSACEA AFTER SHOWER Scheduled PRN Acetaminophen (Tylenol Extra Strength) 500 Mg Tab, 1,000 MG PO Q6H PRN for PAIN, (Reported) Clotrimazole (Clotrimazole Anti-Fungal) 1 % Cre, 1 DOSE TOP BID PRN for RASH, (Reported) USES UNDER STOMACH FOLD NEEDED FOR RASH Cyclobenzaprine HCl (Cyclobenzaprine HCl) 5 Mg Tab, 5 MG PO TID PRN for HEADACHE, (Reported) Allergies Coded Allergies: Latex (Unverified Allergy, Unknown, rash, 02/02/17) Atorvastatin (Unverified Adverse Reaction, Mild, muscle cramps, 02/02/17) Dobutamine (Verified Adverse Reaction, Mild, drops heartrate into the 40's, 02/02/17) Lisinopril (Verified Adverse Reaction, Mild, cough, 02/02/17) [facility] Jul 05, 2018 10:44
== END 2018-07-05 12:04 | disposition home or self-care (01) ==
LOC: EDSEX 16:02 → M ED 16:02 → EDBD 16:02 → M ED INP 07-04 01:07 → M MSPAV 07-04 12:47
PROVIDERS: ADMIT Internal Medicine; ATTEND Family Medicine
DX: I95.1 Orthostatic hypotension (principal); E86.0 Dehydration; N17.9 Acute kidney failure, unspecified; N18.3 Chronic kidney disease, stage 3 (moderate); E87.6 Hypokalemia; N39.0 Urinary tract infection, site not specified; B96.20 Unspecified Escherichia coli [E. coli] as the cause of diseases classified elsewhere; F32.9 Major depressive disorder, single episode, unspecified; I25.10 Atherosclerotic heart disease of native coronary artery without angina pectoris; E03.9 Hypothyroidism, unspecified; I11.9 Hypertensive heart disease without heart failure; Z79.82 Long term (current) use of aspirin; Z79.899 Other long term (current) drug therapy; Z91.040 Latex allergy status; Z88.8 Allergy status to other drugs, medicaments and biological substances; E66.9 Obesity, unspecified; Z87.891 Personal history of nicotine dependence
CPT/HCPCS: 36415; 70450; 71045; 80048; 80076; 80307; 81001; 82550; 82553; 83605; 83735; 84443; 85025; 85027; 87040; 87088; 87186; 87486; 87502; 87581; 87633; 87798; 93005; 93041; 94760; 97161; 99285; G0480; J0696

== ENCOUNTER → 2019-05-30 | Outpatient (REF) | payer OTHER ==
[~2019-05-30] MED LIST changes: +ACET500T15 PO; +ASPI81TAEC PO; +CARV12.5 PO; +CEFD300CAP PO; +CEPH500C PO; +CHLO25TA PO; +CLOTCRE3 TOP; +DULO1CAP4 PO; +FISH1000 PO; +LATA0.0013 OD; -LATA5OPD OD; +SYNT50TA PO; +TYLE500T78 PO; +VITA50005 PO; +XALA0.007 OU; +ZETI10TA16 PO
== END ==
LOC: M SFHCADAM 14:04
PROVIDERS: ATTEND Physician Assistant
DX: I10 Essential (primary) hypertension (principal); I25.10 Atherosclerotic heart disease of native coronary artery without angina pectoris; M17.0 Bilateral primary osteoarthritis of knee; Z13.820 Encounter for screening for osteoporosis